=== PATIENT | female | born 1985 | race Caucasian/White ===

== ENCOUNTER 2018-05-05 07:12 | Inpatient (IN) | payer OTHER ==
[~2018-05-05] VITALS: Ht 180.3 cm; Wt 79.4 kg
[~2018-05-05 07:12] MED LIST: PRENATAL CAPLE1 EACH
[2018-05-05] MEDS ORDERED: IRON325 MG PO (11:44)
== END 2018-05-07 18:37 | disposition home or self-care (01) | DRG 807 ==
LOC: LDR 07:12 → OB/GYN 07:12
PROVIDERS: ADMIT Obstetrics & Gynecology
PROC: 10E0XZZ Delivery of Products of Conception, External Approach (ICD-10-PCS; principal; 2018-05-05)
PROC: 10907ZC Drainage of Amniotic Fluid, Therapeutic from Products of Conception, Via Natural or Artificial Opening (ICD-10-PCS; 2018-05-05)
PROC: 4A1HXCZ Monitoring of Products of Conception, Cardiac Rate, External Approach (ICD-10-PCS; 2018-05-05)
DX: O80 Encounter for full-term uncomplicated delivery (principal); Z37.0 Single live birth; Z3A.38 38 weeks gestation of pregnancy